=== PATIENT | female | born 1940 | race Caucasian/White ===

== ENCOUNTER → 2016-09-03 | Outpatient (CLI) | payer OTHER ==
[~2016-09-03] VITALS: Ht 167.6 cm; Wt 81.6 kg
[~2016-09-03] MED LIST: CRESTOR5 MG PO; CYCLOBENZAPRINE10 MG PO; FIBERCON625 MG PO; FISH OIL 1,001000 M2 PO; HYOSCYAMINE0.125 MG PO; NABUMETONE 500500 M1 PO; OXYBUTYNIN 5 MG5 M2 PO; PRILOSEC40 MG PO; TRIAMCINOLONE A80 G2; TYLENOL PM; TYLENOL PM EX-1 EACH PO; VITAMIN D-32000 UNIT PO
--- NOTE | ~2016-09-03 | HPC ---
[facility] [place] [address] PAIN MANAGEMENT CONSULTATION Name: REAL GUTIÉRREZ Room #: REG [facility] Dale#: [id number] Admission: 09/03/16 Attend Phys: Jorden Matthews DO Discharge: Date of : 42 Report #: [id number] THIS REPORT FOR: //name// CC: Jorden Lee MD DATE OF SERVICE: 09/03/2016 DATE OF SERVICE: 09/03/2016 CHIEF COMPLAINT: Low back pain, right lower extremity pain and paresthesias. HISTORY OF PRESENT ILLNESS: As you know, patient is a very pleasant 76-year-old female, who has returned today in followup visit requesting next in the series of epidural injections under fluoroscopic guidance. The patient has had increasing low back and right lower extremity pain over the past month for which she returns in followup visit to discuss options for treatment. She has done very well with previous epidural injections, hopeful to see similar improvement with next in the series of epidural injections. She suffers from severe central canal stenosis at L4-L5, that I believe is causing reoccurrence of pain. The distribution is relatively unchanged from our visit of 11/21/2015. She denies new injury new trauma that may have led to increasing pain issues. She wishes to undergo next in the series of epidural injections. ALLERGIES: No known drug allergies. CURRENT MEDICATIONS: Tylenol, omeprazole, calcium carbonate, oxybutynin, hyoscyamine, omega-3 fish oil. SOCIAL HISTORY: The patient denies tobacco, alcohol or IV illicit drug use. 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 She is accompanied by her , who was present in room today. PHYSICAL EXAMINATION: VITAL SIGNS: Blood pressure 140/88, pulse 62, respiratory rate 18 and unlabored. The patient is 100% on room air. Height 5 feet 6 inches tall, weight 180 pounds, BMI calculated 29.1. GENERAL: Well developed, well nourished, well hydrated 76-year-old female appearing stated age, placing current pain score 3-4/10. HEENT: Normocephalic, atraumatic. Pupils equal, round, reactive to light. Extraocular muscles are intact. Sclerae nonicteric without injection. NEUROLOGIC: Cranial nerves 2-12 grossly intact. Speech is fluent. The patient deemed to be a good historian. LUNGS: Clear. No wheezing, rhonchi, rales. CARDIOVASCULAR: Regular. No appreciable gallop or rub. [address] [address] PAIN MANAGEMENT CONSULTATION Name: REAL GUTIÉRREZ Room #: REG [facility].#: [id number] Admission: 09/03/16 Attend Phys: Jorden Matthews DO Discharge: Date of : 42 Report #: [id number] ABDOMEN: Soft, nontender, nondistended. EXTREMITIES: Show no clubbing, no cyanosis, no edema. MUSCULOSKELETAL: Lower extremity strength appears equal and symmetrical, though there is some giveaway strength noted again with hip flexion on the right when compared to left. Seated straight leg raising positive, supine straight leg raising positive right. Fabere's test negative. Modified Gaenslen's positive for axial low back. Gait slightly antalgic favoring right lower extremity over the left. Station normal. ASSESSMENT: 1. Symptomatic lumbar radiculopathy. 2. Progressively worsening spinal stenosis of the lumbar spine. 3. Displacement of lumbar intervertebral disk with radiculopathy. 4. Lumbosacral spondylosis with radiculopathy. 5. Lumbar degeneration. 6. Chronic intractable pain. PLAN: 1. The patient has returned today in followup visit requesting to undergo next in the series of epidural injections under fluoroscopic guidance. The patient has done very well with previous epidural injections noticing upwards of 70% improvement in overall pain with the previous treatment. The patient returns today nearly 8 months after a previous injection, requesting a repeat injection. She states her pain began about a month ago and progressively worsened. She has denied any injury or trauma that may have led to progression or reoccurrence of pain. The patient was advised that third primary restrictions require that authorization be obtained before we can undergo the next in a series of epidural injections. Authorization should be obtained within a 4-7 working day period. We will contact the patient once this authorization has been completed, so that we can have the patient undergo next in the series of epidural injections in hopes of improving pain further building on success of previous intervention. 2. No medication changes were made at today's visit. The patient will continue current medical therapy as previously prescribed. 3. The patient to return to our clinic once authorization has been obtained to undergo epidural injection under fluoroscopic guidance to address lumbar radicular symptoms secondary to spinal stenosis. <ELECTRONICALLY SIGNED> By: Jorden Matthews DO 09/04/16 0743 [id number] Jorden Matthews DO /nt
[2016-09-03 08:50] VITALS: BP 140/88
== END ==
LOC: PAIN 07:05
DX: M47.27 Other spondylosis with radiculopathy, lumbosacral region (principal); M48.06 Spinal stenosis, lumbar region; M51.16 Intervertebral disc disorders with radiculopathy, lumbar region; Z87.891 Personal history of nicotine dependence

== ENCOUNTER → 2016-09-10 | Outpatient (CLI) | payer OTHER ==
[~2016-09-10] VITALS: Ht 167.6 cm; Wt 83.6 kg
--- NOTE | ~2016-09-10 | HPC ---
[facility] [place] [address] PAIN MANAGEMENT CONSULTATION Name: REAL GUTIÉRREZ Room #: REG [facility]..#: [id number] Admission: 09/10/16 Attend Phys: Jorden Mattehws DO Discharge: Date of : 42 Report #: [id number] THIS REPORT FOR: //name// CC: Jorden Lee MD DATE OF SERVICE: 09/10/2016 REFERRING PHYSICIAN: Pamella Lee MD CHIEF COMPLAINT: Low back pain, right lower extremity pain and paresthesias. HISTORY OF PRESENT ILLNESS: As you know, the patient is a very pleasant 76-year-old female who has returned today in followup visit having received precertification to undergo lumbar epidural injection under fluoroscopic guidance. She is placing pain score today around 2-3/10 states her pain is aching, constant sore in sensation, exacerbated with sleep, lifting, and improves with repositioning. She returns today to address her lumbar radicular symptoms with epidural injection, which has received preapproval. ALLERGIES: No known drug allergies. CURRENT MEDICATIONS: Tylenol, omeprazole, calcium carbonate, oxybutynin, hyoscyamine, omega 3 fish oil. SOCIAL HISTORY: The patient denies tobacco, alcohol, IV or illicit drug use. 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 She is accompanied by her . PHYSICAL EXAMINATION: VITAL SIGNS: Blood pressure 131/62, pulse 73, respiratory rate 16, unlabored. The patient is 99% on room air. Height 5 feet 6 inches tall, weight 184.2 pounds, BMI calculated 29.7. GENERAL: Well-developed, well-nourished, well-hydrated 76-year-old female appearing stated age, placing current pain score 2-3/10. HEENT: Normocephalic, atraumatic. Pupils equal, round, reactive to light. EXTREMITIES: Show no clubbing, no cyanosis, no edema. MUSCULOSKELETAL: Gait remains slightly antalgic favoring right lower extremity over left. Modified Gaenslen's is positive for axial low back pain. Straight leg raising is positive in the seated and supine position. ASSESSMENT: 1. Symptomatic lumbar radiculopathy. 2. Progressively worsening spinal stenosis of the lumbar spine. 3. Displacement of the lumbar intervertebral disk with radiculopathy. 4. Lumbosacral spondylosis with radiculopathy. [address] [address] PAIN MANAGEMENT CONSULTATION Name: REAL GUTIÉRREZ Room #: REG JULIANO VasquezEva#: [id number] Admission: 09/10/16 Attend Phys: Jorden Matthews DO Discharge: Date of : 42 Report #: [id number] 5. Lumbar degeneration. 6. Chronic intractable pain. PLAN: 1. The patient has returned today in followup visit having received precertification to undergo the next in a series of epidural injections. The patient was advised risks and benefits of this epidural injection. These risks include but are not necessarily limited to bleeding, bruising, infection, worsening pain, no relief of pain, also risk of temporary or permanent muscle weakness, temporary or permanent nerve damage, possible paralysis and . The patient states understood and wished to proceed. 2. No medication changes were made at today's visit. The patient will continue current medical therapy as previously prescribed. 3. The patient to return to our clinic on an as needed basis for possible repeat epidural injection. PROCEDURE NOTE DESCRIPTION OF PROCEDURE: L5-S1 interlaminar epidural steroid injection under fluoroscopic guidance. After obtaining written consent, the patient was taken back to fluoroscopy suite, placed in prone position with pillow under abdomen to decrease lumbar lordosis. Skin overlying the lumbosacral area was prepped and draped in aseptic fashion. The lumbar epidural spaces were identified by AP fluoroscopy. Skin and subcutaneous tissue overlying the target site of injection was anesthetized with 3 mL of 1% lidocaine. A 20-gauge 3-1/2 inch Tuohy needle advanced under fluoroscopic guidance towards the epidural space using a midline approach. Epidural space was identified using loss of resistance to air technique. After negative aspiration for heme or cerebrospinal fluid, 1 mL of Omnipaque was injected. Lumbar epidurogram was confirmed using both AP and lateral fluoroscopy. After negative aspiration for heme or cerebrospinal fluid, 5 mL of a solution containing 2 mL 40 mg per mL, 80 mg total triamcinolone, 3 mL lidocaine 1% was injected slowly. Needle retracted approximately care home, needle tract flushed with 3 mL of 1% lidocaine. Needle was then removed. Sterile bandage placed over injection site. No new motor deficits present in lower extremity following procedure. The patient tolerated procedure well, carefully escorted to recovery room in stable condition. No apparent complication. After meeting discharge criteria, the patient discharged home. <ELECTRONICALLY SIGNED> By: Jorden Matthews DO 09/23/16 0805 [id number] Jorden Matthews DO /nt
[2016-09-10 10:17] VITALS: BP 131/62
== END | disposition home or self-care (01) ==
LOC: PAIN 07:13
DX: M51.16 Intervertebral disc disorders with radiculopathy, lumbar region (principal); M48.06 Spinal stenosis, lumbar region; M47.27 Other spondylosis with radiculopathy, lumbosacral region; G89.29 Other chronic pain; Z87.891 Personal history of nicotine dependence

== ENCOUNTER → 2017-03-04 | Outpatient (CLI) | payer OTHER ==
[~2017-03-04] VITALS: Ht 167.6 cm; Wt 83.0 kg
--- NOTE | ~2017-03-04 | HPC ---
[facility] [address] [address] PAIN MANAGEMENT CONSULTATION Name: REAL GUTIÉRREZ Room #: REG JULIANO Dale#: [id number] Admission: 03/04/17 Attend Phys: Jorden Matthews DO Discharge: Date of : 42 Report #: [id number] THIS REPORT FOR: //name// CC: Jorden Lee MD DATE OF SERVICE: 03/04/2017 DATE OF SERVICE: 03/04/2017. REFERRING PHYSICIAN: Pamella Lee M.D. CHIEF COMPLAINT: Low back pain, right lower extremity pain and paresthesias. HISTORY OF PRESENT ILLNESS: As you know, the patient is a very pleasant 76-year-old female who returns today in followup visit with ongoing low back pain, lower extremity pain with paresthesias. She is now experiencing both right and left lower extremity symptoms. She returns today requesting epidural injection under fluoroscopic guidance. She reports 75% improvement in overall pain lasting for 3-1/2 months with the previous injection. She returns today requesting next in a series of epidural injections in hopes of improving pain further. ALLERGIES: No known drug allergies. CURRENT MEDICATIONS: Tylenol, omeprazole, calcium carbonate, oxybutynin, omega 3 fish oil, hyoscyamine. SOCIAL HISTORY: The patient denies tobacco, alcohol, IV or illicit drug use. She is accompanied by her who is present in room today. IMAGING: No new imaging available. PHYSICAL EXAMINATION: VITAL SIGNS: Blood pressure 155/74, pulse 68, respiratory rate 14, unlabored. The patient is 98% on room air, height 5 feet 6 inches tall, weight 183 pounds, BMI calculated 29.6. GENERAL: Well developed, well nourished, well hydrated 76-year-old female appearing her stated age. She is placing current pain score at approximately 4-5/10. HEENT: Normocephalic, atraumatic. Pupils equal, round, reactive to light. Extraocular muscles are intact. Dentition is normal. EXTREMITIES: Show no clubbing, no cyanosis, no edema. MUSCULOSKELETAL: Seated straight leg raising is positive on the right, supine straight leg raising positive right. Bubba [place] [address] PAIN MANAGEMENT CONSULTATION Name: REAL GUTIÉRREZ Room #: REG JULIANO Eva.#: [id number] Admission: 03/04/17 Attend Phys: Jorden Matthews DO Discharge: Date of : 42 Report #: [id number] positive for axial low back pain. Ankle clonus negative. Babinski is negative. ASSESSMENT: 1. Symptomatic lumbar radiculopathy. 2. Progressively worsening spinal stenosis of the lumbar spine. 3. Displacement of lumbar intervertebral disk with radiculopathy. 4. Lumbosacral spondylosis with radiculopathy. 5. Lumbar degeneration. 6. Chronic intractable pain. PLAN: 1. The patient returns today in followup visit having noted 75% improvement in overall symptoms with previous epidural injection lasting for nearly 3-1/2 months. Unfortunately, the patient has had a slow and progressive return of symptoms. She denies injury or trauma that may have led to progression of pain. She returns today requesting next in a series of epidural injections to build on success of previous intervention. She has been advised risks and benefits of the procedure, states she understood and wished to proceed. 2. No medication changes were made at today's visit. The patient will continue current medical therapy as previously prescribed. 3. We will see the patient back in followup visit on an as needed basis for possible next in the series of epidural injections. PROCEDURE NOTE DESCRIPTION OF PROCEDURE: L5-S1 interlaminar epidural steroid injection under fluoroscopic guidance using a right paramedian approach. PROCEDURE IN DETAIL: After obtaining written consent, the patient was taken back to fluoroscopy suite, placed in prone position with pillow under abdomen to decrease lumbar lordosis. Skin overlying lumbosacral area prepped and draped in aseptic fashion. Lumbar intervertebral spaces were identified by AP fluoroscopy. Skin and subcutaneous tissue overlying target site of injection was anesthetized with 3 mL of 1% lidocaine. A 20-gauge 3-1/2 inch Tuohy needle advanced under fluoroscopic guidance utilizing a right paramedian approach at the L5-S1 interspace. Epidural space was identified using loss of resistance to air technique. After negative aspiration for heme or cerebrospinal fluid, 1 mL of Omnipaque was injected. A lumbar epidurogram was confirmed using both AP and lateral fluoroscopy. After negative aspiration for heme or cerebrospinal fluid, 5 mL of a solution containing 2 mL 40 mg per mL, 80 mg total triamcinolone, 3 mL lidocaine 1% injected slowly. Needle retracted assisted, needle tract flushed 3 mL 1% lidocaine. Needle then removed. Sterile bandage placed over injection site. No new motor deficits present in lower extremity following the procedure. [facility] [address] [place] [address] PAIN MANAGEMENT CONSULTATION Name: REAL GUTIÉRREZ Room #: REG JULIANO AlissonEvaReji#: [id number] Admission: 03/04/17 Attend Phys: Jorden Matthews DO Discharge: Date of : 42 Report #: [id number] The patient tolerated procedure well, carefully escorted to the recovery in stable condition. No apparent complication. After meeting discharge criteria, the patient discharged home. By: [id number] Jorden Matthews DO /nt
[2017-03-04 13:11] VITALS: BP 155/74
== END | disposition home or self-care (01) ==
LOC: PAIN 07:16
DX: M51.16 Intervertebral disc disorders with radiculopathy, lumbar region (principal); M48.06 Spinal stenosis, lumbar region; M47.27 Other spondylosis with radiculopathy, lumbosacral region; G89.29 Other chronic pain; Z98.890 Other specified postprocedural states; Z79.899 Other long term (current) drug therapy; Z88.2 Allergy status to sulfonamides; Z87.891 Personal history of nicotine dependence

== ENCOUNTER → 2017-08-27 | Outpatient (CLI) | payer OTHER ==
[~2017-08-27] VITALS: Ht 167.6 cm; Wt 80.8 kg
[~2017-08-27] MED LIST changes: +BIOTIN2500 MCG PO
--- NOTE | ~2017-08-27 | HPC ---
[facility] [address] [place] [address] PAIN MANAGEMENT CONSULTATION Name: REAL GUTIÉRREZ Room #: REG JULIANO Pedro.#: [id number] Admission: 08/27/17 Attend Phys: Jorden Matthews DO Discharge: Date of : 42 Report #: [id number] THIS REPORT FOR: //name// CC: Jorden Lee MD DATE OF SERVICE: 08/27/2017 CHIEF COMPLAINT: Low back pain, right lower extremity pain with paresthesias. HISTORY OF PRESENT ILLNESS: As you know, the patient is a very pleasant 77-year-old female who returns today in followup visit reporting pain score of around 4/10, during the evening hours it can rise to about 8/10. She describes the pain as sharp, aching, numbness, tingling; exacerbated with sitting, bending, changing positions, standing and lying down; improves with rest, relaxation and previous epidural injections. The last epidural injection provided 80% improvement in overall pain lasting for nearly 3 months. She underwent an epidural injection in February and actually had pain relief all the way into July, but did have slow and progressive return of symptoms without inciting injury or trauma. She returns today in followup visit requesting next in a series of epidural injections. ALLERGIES: No known drug allergies. CURRENT MEDICATIONS: Tylenol, omeprazole, calcium carbonate, oxybutynin, omega 3 fish oil, hyoscyamine. SOCIAL HISTORY: The patient denies tobacco, alcohol or IV illicit drug use. She is accompanied by her who is present in room today. IMAGING: No new imaging available. PHYSICAL EXAMINATION: VITAL SIGNS: Blood pressure 139/62, pulse 64, respiratory rate 16 and unlabored. The patient is 97% on room air. Height 5 feet 6 inches tall, weight 178.2 pounds, BMI calculated 28.8. GENERAL: Well-developed, well-nourished, well-hydrated 77-year-old female appearing her stated age, placing current pain score at around 5/10. HEENT: Normocephalic, atraumatic. Pupils equal, round, reactive to light. EXTREMITIES: Show no clubbing, no cyanosis, no edema. MUSCULOSKELETAL: Seated straight leg raising is positive on the right. Supine straight leg raising positive right. Gait antalgic favoring right lower extremity over left. Ankle clonus negative. Babinski is negative, intact to light touch from L1 through S2 dermatomes. [address] [address] PAIN MANAGEMENT CONSULTATION Name: REAL GUTIÉRREZ Room #: REG JULIANO Dale#: [id number] Admission: 08/27/17 Attend Phys: Jorden Matthews DO Discharge: Date of : 42 Report #: [id number] ASSESSMENT: 1. Symptomatic lumbar radiculopathy. 2. Progressively worsening spinal stenosis of lumbar spine. 3. Displacement of lumbar intervertebral disk with radiculopathy. 4. Lumbosacral spondylosis with radiculopathy. 5. Lumbar degeneration. 6. Chronic intractable pain. PLAN: 1. The patient returns today in followup visit requesting to undergo next in the series of epidural injections. The patient has had excellent benefit with previous epidural injection providing upwards of 80% improvement in overall pain lasting for months. She has only had a slow and progressive return of symptoms over the past month to month and a half, meaning that she received 3 months or greater improvement in symptoms with the previous epidural injection. We have advised the patient third republican payer restrictions require that authorization be obtained. We will begin the authorization process immediately. Once we have received this authorization, we will have the patient return in followup visit to undergo epidural injection under fluoroscopic guidance. 2. No medication changes were made at today's visit. The patient will continue current medical therapy as previously prescribed. 3. We will see the patient back in followup visit once we have received precertification for the patient to undergo epidural injection to address the right lumbar radicular symptoms she has been experiencing of late. <ELECTRONICALLY SIGNED> By: Jorden Matthews DO 09/09/17 0906 [id number] Jorden Matthews DO /nt
[2017-08-27 09:46] VITALS: BP 139/62
== END ==
LOC: PAIN 06:53
DX: M48.061 Spinal stenosis, lumbar region without neurogenic claudication (principal); M51.26 Other intervertebral disc displacement, lumbar region; M47.27 Other spondylosis with radiculopathy, lumbosacral region; G89.29 Other chronic pain

== ENCOUNTER → 2017-09-03 | Outpatient (CLI) | payer OTHER ==
[~2017-09-03] VITALS: Ht 167.6 cm; Wt 80.7 kg
--- NOTE | ~2017-09-03 | HPC ---
[facility] [place] [address] PAIN MANAGEMENT CONSULTATION Name: REAL GUTIÉRREZ [facility] #: [facility] [id number] Admission: 09/03/17 Attend Phys: Jorden Matthews DO Discharge: Date of : 42 Report #: [id number] THIS REPORT FOR: //name// CC: Jorden Lee MD DATE OF SERVICE: 09/03/2017 CHIEF COMPLAINT: Low back pain, right lower extremity pain and paresthesias. HISTORY OF PRESENT ILLNESS: As you know, the patient is a very pleasant 77-year-old female who returns today in followup visit having received precertification from her third republic[employer] payer to undergo epidural injection under fluoroscopic guidance to address lumbar radicular symptoms. The patient is placing her pain score around 4/10. States that sleeping on her right side, sitting, changing position, bending and standing exacerbate symptoms; elevating her right leg, rest and previous epidural injections have improved symptoms. She returns today in followup visit to undergo the preapproved lumbar epidural injection. ALLERGIES: No known drug allergies. CURRENT MEDICATIONS: Tylenol, omeprazole, calcium carbonate, oxybutynin, omega-3 fish oil, hyoscyamine. SOCIAL HISTORY: The patient denies tobacco, alcohol or IV or illicit drug use. She is accompanied by her who is present in room today. IMAGING: No new imaging available. PHYSICAL EXAMINATION: VITAL SIGNS: Blood pressure 137/65, pulse 74, respiratory rate 16, unlabored. The patient is 100% on room air. Height 5 feet 6 inches tall, weight 177.8 pounds, BMI calculated 28.7. GENERAL: Well-developed, well-nourished, well-hydrated 77-year-old female appearing her stated age. Placing current pain score at 4-5/10. HEENT: Normocephalic, atraumatic. Pupils equal, round, reactive to light. Extraocular muscles are intact. Speech is fluent. EXTREMITIES: Show no clubbing, no cyanosis, no edema. MUSCULOSKELETAL: Seated straight leg raising positive on the right. Supine straight leg raising positive on right. Gait is antalgic favoring right lower extremity over left. Stance is slightly forward flexed lumbar spine. Muscle bulk and tone equal and symmetrical in lower extremities. ASSESSMENT: [address] [address] PAIN MANAGEMENT CONSULTATION Name: REAL GUTIÉRREZ Room #: REG JULIANO Dale#: [id number] Admission: 09/03/17 Attend Phys: Jorden Matthews DO Discharge: Date of : 42 Report #: [id number] 1. Symptomatic lumbar radiculopathy. 2. Progressively worsening spinal stenosis of lumbar spine. 3. Displacement of lumbar intervertebral disk with radiculopathy. 4. Lumbosacral spondylosis with radiculopathy. 5. Lumbar degeneration. 6. Chronic intractable pain. PLAN: 1. The patient returns today in followup visit to undergo epidural injection under fluoroscopic guidance. The patient has received precertification to undergo the procedure. We have advised the patient of the risks and the benefits of the procedure itself. These risks include, but not necessarily limited to bleeding, bruising, infection, worsening pain, no relief of pain, also risk of temporary or permanent muscle weakness, temporary or permanent nerve damage, possible paralysis and . The patient states she understood and wished to proceed. 2. No medication changes were made at today's visit. The patient will continue current medical therapy as previously prescribed. 3. We will see the patient back in followup visit on an as-needed basis for possible next in the series of epidural injections and discuss other treatment options. DESCRIPTION OF PROCEDURE: L5-S1 interlaminar epidural steroid injection under fluoroscopic guidance. After obtaining written consent, the patient was taken back to fluoroscopy suite, placed in prone position with pillow under abdomen to decrease lumbar lordosis. Skin overlying the lumbosacral area prepped and draped in aseptic fashion. Lumbar intervertebral space was identified by AP fluoroscopy. Skin and subcutaneous tissue overlying the target site of injection was anesthetized with 3 mL of 1% lidocaine. A 20-gauge 3-1/2 inch Tuohy needle advanced under fluoroscopic guidance towards the epidural space using a right paramedian approach. Epidural space identified using loss of resistance to air technique. After negative aspiration for heme or cerebrospinal fluid, 1 mL of Omnipaque was injected. A lumbar epidurogram was confirmed using both AP and lateral fluoroscopy. After negative aspiration for heme or cerebrospinal fluid, 5 mL of a solution containing 2 mL 40 mg per mL, 80 mg total triamcinolone, 3 mL lidocaine 1% injected slowly. Needle retracted group home, flushed with 1 mL of 1% lidocaine and removed. Sterile bandage placed over injection site. No new motor deficits present in the lower extremity following the procedure. The patient tolerated procedure well, carefully escorted to recovery room in [facility] [address] [place] [address] PAIN MANAGEMENT CONSULTATION Name: REAL GUTIÉRREZ Room #: REG JULIANO Dale#: [id number] Admission: 09/03/17 Attend Phys: Jorden Matthews DO Discharge: Date of : 42 Report #: [id number] stable condition. No apparent complications. After meeting discharge criteria, the patient discharged home. <ELECTRONICALLY SIGNED> By: Jorden Matthews DO 09/09/17 [id number] Jorden Matthews DO /nt
[2017-09-03 09:44] VITALS: BP 137/65
== END | disposition home or self-care (01) ==
LOC: PAIN 07:05
DX: M51.16 Intervertebral disc disorders with radiculopathy, lumbar region (principal); G89.29 Other chronic pain; M48.061 Spinal stenosis, lumbar region without neurogenic claudication; M47.27 Other spondylosis with radiculopathy, lumbosacral region; Z79.899 Other long term (current) drug therapy; Z98.890 Other specified postprocedural states; Z87.891 Personal history of nicotine dependence; Z88.2 Allergy status to sulfonamides

== ENCOUNTER → 2018-06-30 | Outpatient (CLI) | payer OTHER ==
[~2018-06-30] VITALS: Ht 152.4 cm; Wt 81.6 kg
[~2018-06-30] MED LIST changes: +FLEXERIL PO
--- NOTE | ~2018-06-30 | HPC ---
[facility] [address] [address] PAIN MANAGEMENT CONSULTATION Name: REAL GUTIÉRREZ Room #: REG [facility] M.[place].#: [id number] Admission: 06/30/18 Attend Phys: Jorden Matthews DO Discharge: Date of : 42 Report #: [id number] THIS REPORT FOR: //name// CC: Jorden WILSON MD DATE OF SERVICE: 06/30/2018 CHIEF COMPLAINT: Low back pain, right lower extremity pain with paresthesias, intermittent right hip pain. 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 She has undergone epidural injections with reduction in the efficacy over time. She was evaluated recently by Orthopedics who has referred the patient back to trial a right intraarticular hip injection. Apparently, the orthopedic surgeon does not provide these type of injections typically and she was referred back to trial this injection. She indicates today pain begins in the low back, buttock area. It is bilateral in nature, radiates down the right leg all the way to the foot and involves numbness and tingling. She does note minor worsening of symptoms consistent with standing and walking. She has been referred back to our clinic per the request of Dr. Wilson to try a right intraarticular hip injection. If this is ineffective, plan was to refer the patient to neurosurgery. She indicates today pain level of around 3/10. States her pain is aching, shooting, numbness, tingling and tenderness, exacerbated with lying down and sitting, improves with massage, heat, cold compresses. ALLERGIES: No known drug allergies. CURRENT MEDICATIONS: Tylenol, omeprazole, calcium carbonate, oxybutynin, omega-3 fish oil, hyoscyamine. SOCIAL HISTORY: The patient denies tobacco, alcohol, IV or illicit drug use. She is retired. She is accompanied by her who is present in room today. IMAGING: No new imaging is available. PQRS, the patient has known osteoarthritis of the bilateral hips, bilateral knees and low back. No rheumatoid arthritis. She is placing pain intensity today at approximately 3/10. She is not a fall risk, has not had a fall in last 3 months. She is not on blood thinners. She is not treated for hypertension. She is not on any opioid. She has a low opioid abuse potential. Her functional pain impact score indicated at 34/70, moderate interference. [address] [address] PAIN MANAGEMENT CONSULTATION Name: REAL GUTIÉRREZ [facility] #: [facility] [id number] Admission: 06/30/18 Attend Phys: Jorden Matthews DO Discharge: Date of : 42 Report #: [id number] PHYSICAL EXAMINATION: VITAL SIGNS: Blood pressure 164/75, pulse 78, respiratory rate 18 and unlabored. The patient is 94% on room air. Height 5 feet 6 inches tall, weight 180 pounds, BMI calculated 35.2. GENERAL: Well-developed, well-nourished, well-hydrated exogenously obese 78-year-old female, appearing stated age, placing current pain score at 3/10. HEENT: Normocephalic, atraumatic. Pupils equal, round, reactive to light. Speech fluent. EXTREMITIES: Show no clubbing, no cyanosis, no edema. MUSCULOSKELETAL: The patient's gait remains mildly antalgic on the left. There is deep palpation tenderness over the bilateral buttock area. No SI joint dysfunction. Seated straight leg raising negative. Supine straight leg raising positive on the right. Bubba's test negative. Modified Gaenslen's positive for axial low back pain. ASSESSMENT: 1. Symptomatic lumbar radiculopathy. 2. Severe spinal stenosis of lumbar spine. 3. Displacement of lumbar intervertebral disk with radiculopathy. 4. Lumbosacral spondylosis with radiculopathy. 5. Lumbar degeneration. 6. Right hip pain. 7. Chronic intractable pain. PLAN: 1. The patient has been referred back to our clinic by her orthopedic surgeon, Dr. Wilson to undergo right intraarticular hip injection. Apparently, imaging has been obtained and there is some concern that part of her symptoms may be related to her right hip. She does have some noted discomfort with movement of the right hip, though this would not be correlating with numbness and tingling the patient is reporting in the low back radiating down the leg. We have agreed to have the patient undergo the requested right hip injection so that we can determine the potential for how much that hip joint may be contributing to the patient's overall pain. There is question whether or not the patient's right hip is the source of symptoms or the severe spinal stenosis noted at the L4-L5 level we have been treating. She has been consented to undergo the right intra-articular hip injection per the request of the orthopedic surgeon today. She has been advised risks and benefits, states understood and wished to proceed. 2. No medication changes made at today's visit. The patient will continue current medical therapy as previously prescribed. 3. We will see the patient back in followup visit on an as needed basis. She is to contact her orthopedic surgeon in the next couple of days to advise of the efficacy of today's right intraarticular hip injection. [facility] [address] [address] PAIN MANAGEMENT CONSULTATION Name: EDGARPAXTONDANYEL CARYANDRÉS DUMONT Room #: [facility] [id number] Admission: 06/30/18 Attend Phys: Jorden Matthews DO Discharge: Date of : 42 Report #: [id number] PROCEDURE NOTE PROCEDURE: Right intra-articular hip injection under fluoroscopic guidance. DESCRIPTION OF PROCEDURE: After obtaining written consent, the patient was taken back to fluoroscopy suite, placed in a supine position. The image intensifier was then brought into position over the right hip and AP imaging was obtained. The area was marked with sterile marker. I then prepped and draped with chlorhexidine in a sterile fashion. A 27-gauge 1-1/4 inch needle was used to anesthetize skin and subcutaneous tissue with 3 mL of 1% lidocaine. A 22-gauge 3-1/2 inch spinal needle was advanced under fluoroscopic guidance towards the right femoral head. Needle was advanced until reaching the osseous structure. It was then retracted approximately 1 mm and aspiration noted to be negative for heme. After negative aspiration for heme, 1 mL of Omnipaque was injected demonstrating an excellent right hip arthrogram. After negative aspiration for heme, 5 mL of a solution containing 1 mL 40 mg per mL 40 mg total triamcinolone and 4 mL of bupivacaine 0.5% injected slowly. Needle retracted group home, flushed with 1 mL of 1% lidocaine and removed. Sterile bandage placed over injection site. No new motor deficits present in lower extremity following the procedure. The patient tolerated procedure well, carefully escorted to recovery room in stable condition. No apparent complications. VAS before procedure rated at 3/10 and VAS after procedure rated at 3/10. After meeting our discharge criteria, the patient discharged home. By: [id number] Jorden Matthews DO /nt
[2018-06-30 09:50] VITALS: BP 164/75
== END | disposition home or self-care (01) ==
LOC: PAIN 06:19
DX: M25.551 Pain in right hip (principal); M51.16 Intervertebral disc disorders with radiculopathy, lumbar region; M48.061 Spinal stenosis, lumbar region without neurogenic claudication; M47.27 Other spondylosis with radiculopathy, lumbosacral region; G89.29 Other chronic pain; M19.90 Unspecified osteoarthritis, unspecified site; Z98.890 Other specified postprocedural states; Z87.891 Personal history of nicotine dependence; Z88.2 Allergy status to sulfonamides; Z79.899 Other long term (current) drug therapy

== ENCOUNTER → 2020-09-20 | Outpatient (CLI) | payer OTHER ==
[~2020-09-20] VITALS: Ht 167.6 cm; Wt 82.8 kg
[~2020-09-20] MED LIST changes: +GABAPENTIN 100100 MG PO; +MELOXICAM7.5 MG PO; +NEURONTIN 300M300 M2 PO; +TRAMADOL 50 MG50 MG PO; +VITAMIN D310 MC2 PO
--- NOTE | ~2020-09-20 | HPC ---
[facility] [place] [address] PAIN MANAGEMENT CONSULTATION Name: REAL GUTIÉRREZ Room #: REG JULIANO Dale#: [id number] Admission: 09/20/20 Attend Phys: Jorden Matthews DO Discharge: Date of : 42 Report #: [id number] THIS REPORT FOR: cc: Pamella Lee MD, Paula V. MD Johnson, James E. DO ~ DATE OF SERVICE: 09/20/2020 CHIEF COMPLAINT: Bilateral anterior thigh numbness and tingling. HISTORY OF PRESENT ILLNESS: As you know, the patient is a very pleasant 80-year-old female, who was treated by [facility], [place], operated by [facility] for years for longstanding lumbar radiculopathy. She has now undergone L4-L5 fusion with Dr. May with resolution of symptoms lasting for a couple of months and then she began to experience anterior thigh numbness and tingling, mainly on the right side. It was determined by imaging that her fusion appeared to be normal. She was sent to see an orthopedic hip surgeon who advised the patient that her symptoms are not related to the hip, though she was referred to our clinic to undergo a right intraarticular hip injection. The patient reports today her pain is constant and continuous. She describes the pain as numbness, tingling and burning. It is located on the anterior thigh in the L3-L4 distribution consistent with changes at the L3-L4 level. She is experiencing no hip pain today. Weightbearing does not change her symptomology. She has no resolution of pain with lying down or sitting, which is inconsistent with the left hip pathology. She was referred to our clinic to discuss treatment options. She is placing current pain score 2/10. She denies injury or trauma. Majority of symptoms she feels on the anterior thigh on the right, but intermittently on the left. She describes all pain as numbness, tingling, burning and electrical in sensation. ALLERGIES: No known drug allergies. CURRENT MEDICATIONS: Nabumetone 500 mg twice a day, rosuvastatin 5 mg once a day, oxybutynin 5 mg once a day, acetaminophen p.r.n., biotin 2000 mcg per day, cholecalciferol ____ per day, tramadol 50 mg b.i.d. p.r.n. pain. SOCIAL HISTORY: The patient continues to deny tobacco, alcohol, IV or illicit drug use. She is accompanied by her present in room today. IMAGING: MRI lumbar spine obtained 05/04/2020 shows L1-L2 with bilateral facet arthropathy. No significant central canal or neural foraminal stenosis. L2-L3 shows bilateral facet arthropathy and ligamentum flavum hypertrophy leading to mild neural foraminal narrowing, [id number] spinal canal narrowing. L3-L4 shows extensive facet arthropathy, ligamentum flavum hypertrophy, moderate spinal canal stenosis, mild left neural foraminal narrowing. L4-L5 appears open and patent in the central canal and neural foramen. L5-S1 shows bilateral facet [address] [address] PAIN MANAGEMENT CONSULTATION Name: REAL GUTIÉRREZ Room #: REG JULIANO Hunter#: [id number] Admission: 09/20/20 Attend Phys: Jorden Matthews DO Discharge: Date of : 42 Report #: [id number] arthropathy, mild tripole narrowing of the central canal, minimal neural foraminal narrowing. PQRS: The patient has known arthritic changes of the lumbar spine, cervical spine, bilateral hips. No rheumatoid arthritis. Placing current pain score 2/10. She is not a fall risk, has not had a fall in last 3 months. She is not on blood thinners and not treated for hypertension. She is on tramadol, has a low opioid addiction potential. Pain impact is 30/70, moderate interference of daily activities secondary to pain. PHYSICAL EXAMINATION: VITAL SIGNS: Blood pressure 153/60, pulse is 75, respiratory rate 16 and unlabored. The patient 98% on room air. Height 5 feet 6 inches tall, weight 182.6 pounds, BMI calculated 29.5. GENERAL: Well-developed, well-nourished, well-hydrated 80-year-old female appearing her stated age, in no acute distress, awake, alert and oriented x 3. Current pain score is 2/10. HEENT: Normocephalic, atraumatic. Pupils equal, round and reactive. Extraocular muscles are intact. NEUROLOGIC: Speech fluent. The patient deemed a good historian. She is wearing a mask in compliance with COVID-19 regulations. EXTREMITIES: Show no clubbing, no cyanosis, no edema. MUSCULOSKELETAL: Lower extremity strength appears symmetrical 5/5, intact to light touch from L1 through S2 dermatomes. Seated straight leg raising negative. Supine straight leg raising is positive on the right. Bubba's test is negative bilaterally. No intrinsic hip pathology noted with any maneuvers of the hips. Gait is antalgic favoring right lower extremity over left. Ankle clonus negative. Babinski is negative. Deep tendon reflexes are symmetrical, but diminished. ASSESSMENT: 1. Symptomatic lumbar radiculopathy. 2. Central canal stenosis of lumbar spine. 3. Facet arthropathy of the lumbar spine. PLAN: 1. Based on today's physical exam and history the patient has provided, the description the patient uses in regards to pain as well as the distribution of symptoms. She would appear to be suffering from lumbar radiculopathy secondary to central canal stenosis. We have reviewed the patient's MRI once it was received at our clinic and it does show moderate central canal stenosis at L3-L4 consistent with the patient's current distribution of symptoms. I was unable to elicit any hip pathology and thus I would not recommend intraarticular hip injection as hip pain does not cause numbness and tingling in a dermatomal pattern, specifically on the L3 and L4 dermatome on the right as well as intermittently on the left. We have discussed with the patient the treatment [address] [address] PAIN MANAGEMENT CONSULTATION Name: REAL GUTIÉRREZ Room #: REG CL Dale#: [id number] Admission: 09/20/20 Attend Phys: Jorden Matthews DO Discharge: Date of : 42 Report #: [id number] options we have for lumbar radiculopathy secondary to spinal stenosis. Following was discussed with the patient today. We discussed physical therapy, stretching exercises and core strengthening as a treatment course. We discussed medication management utilizing neuropathic pain medication such as amitriptyline, nortriptyline, Cymbalta, Lyrica or gabapentin. The patient indicates that she was trialled on gabapentin, but we have only given 100 mg 3 times a day, which is essentially a first day dosing of this therapy. She will likely have to be somewhere between 600 mg 3 times a day to 900 mg 3 times a day to reach any efficacious levels. We also discussed with the patient epidural injections under fluoroscopic guidance to address spinal canal stenosis and lumbar radiculopathy and finally, we discussed surgical decompression at the L3-L4 level. After reviewing risks and benefits of all proposed treatment options, the patient chose to make adjustments in medication management. We will begin the process of authorization for an epidural injection as well. 2. The patient will begin with gabapentin 300 mg p.o. at bedtime. She will continue this for 1 night, then increase to 600 mg p.o. at bedtime and continue for 3 nights. If no improvement in symptoms, no side effects, then increase to 900 mg p.o. at bedtime for 3 nights. Again, if no side effects such as sleepiness, disorientation, confusion, mental slowing and no improvement in symptoms, then begin escalating on morning dose every 3 days until reaching 900 mg b.i.d. The patient was given a prescription of #180 gabapentin 300 mg tablets to begin the titration immediately. She was advised once reaching efficacious level stay at that dose, do not increase further. If no improvement in symptoms, no side effects, continue the titration. We will adjust further based on her response. 3. We will begin the authorization process for the patient to undergo lumbar epidural injection. Authorization could take anywhere from 4-7 working days. Once this authorization is completed, we will have the patient return to undergo epidural injection assuming no improvement with medications. 4. We wish to thank the referring team for the opportunity to see the patient in consultation. We are hopeful the information provided here in will help further direct her care for her lumbar radiculopathy secondary to the findings at the L3-L4 level. Again, we wish to thank you for the opportunity to see the patient in consultation. By: [id number] Jorden Matthews DO /nt
[2020-09-20 12:33] VITALS: BP 153/60
--- NOTE | 2020-09-20 12:46 | NUR ---
Pain Clinic Assessment: 1. History of Osteoarthritis: hip and neck History of Rheumatoid Arthritis: Not Applicable 2. Height: 5 ft. 6 in. 167.6 cm. Weight: 182.6 lb. oz. 82.827 kg. Patient's BMI: 29.5 3. Vital Signs: BP: 153/60 Pulse: 75 Resp: 16 Temp: 02 Sat: 98 ECG Mon: 4. Pain Intensity: 2 5. Fall Risk: Dizziness: N Needs help standing or walking: N Fallen in the last 3 months: N Fall risk comments: 6. Patient on Blood Thinner: None 7. History of Hypertension: N 8. Opioid Therapy greater than 6 weeks: N Opiate Contract Signed: 9. Risk Assessment Tool Provided: LOW RISK 08/20 10. Functional Assessment Tool: 11. Recreational Drug Use: Never Drug Type: Tobacco Use: Former Smoker Tobacco Type: Amount or Packs/day: How Many Years: Alcohol Use: Yes Frequency: Weekly Quant: 1-2 DRINKS
== END ==
LOC: PAIN 06:50
PROVIDERS: ATTEND Anesthesiology Pain Medicine
DX: M79.652 Pain in left thigh (principal); R20.2 Paresthesia of skin; M47.26 Other spondylosis with radiculopathy, lumbar region; M48.061 Spinal stenosis, lumbar region without neurogenic claudication; Z88.8 Allergy status to other drugs, medicaments and biological substances; Z79.899 Other long term (current) drug therapy

== ENCOUNTER → 2021-06-05 | Outpatient (CLI) | payer OTHER ==
[~2021-06-05] VITALS: Ht 167.6 cm; Wt 82.6 kg
[~2021-06-05] MED LIST changes: +MIRALAX119 GM PO; +PEPCID20 MG PO
[2021-06-05 13:30] VITALS: BP 140/72
--- NOTE | 2021-06-05 13:32 | NUR ---
Pain Clinic Assessment: 1. History of Osteoarthritis: hip and neck History of Rheumatoid Arthritis: Not Applicable 2. Height: 5 ft. 6 in. 167.6 cm. Weight: 182.0 lb. oz. 82.555 kg. Patient's BMI: 29.4 3. Vital Signs: BP: 140/72 Pulse: 95 Resp: 16 Temp: 02 Sat: 97 ECG Mon: 4. Pain Intensity: 2 5. Fall Risk: Dizziness: N Needs help standing or walking: N Fallen in the last 3 months: N Fall risk comments: 6. Patient on Blood Thinner: None 7. History of Hypertension: N 8. Opioid Therapy greater than 6 weeks: N Opiate Contract Signed: 9. Risk Assessment Tool Provided: LOW RISK 08/20 10. Functional Assessment Tool: 11. Recreational Drug Use: Never Drug Type: Tobacco Use: Former Smoker Tobacco Type: Amount or Packs/day: How Many Years: Alcohol Use: Yes Frequency: Quant:
--- NOTE | 2021-06-06 10:41 | HPC ---
[facility] [address] [place] [address] PAIN MANAGEMENT CONSULTATION Name: REAL GUTIÉRREZ Room #: REG JULIANO Dale#: [id number] Admission: 06/05/21 Attend Phys: Dayanna Barlow Discharge: Date of : 44 Report #: [id number] THIS REPORT FOR: cc: Pamella Lee MD,Dayanna Schwab MD ~ cc: Pamella Lee MD, Jorden Matthews DO DATE OF SERVICE: 06/05/2021 CHIEF COMPLAINT: Bilateral anterior thigh numbness and low back pain. HISTORY OF PRESENT ILLNESS: This is a very pleasant 80-year-old female who returns to the pain clinic today to renew her gabapentin. Today, the patient states her pain, numbness, tingly sensation is a 2/10. She believes the gabapentin taking one middle of the day and two at bedtime affords her much relief and enables her to sleep at night. She reports that taking higher levels as she tried initially did cause some side effects of oversedation. She believes that the current dose does significantly help the tingly sensation and achy sensation that she feels in her legs bilaterally. The patient reports that since we have seen her last in September, she has also had some cervical radiculopathy issues and lumbar radiculopathy issues that she did see her primary care physician for. She does report having physical therapy, which was beneficial as well as a Medrol Dosepak. Her pain is mostly resolved, though at times she does have radicular symptoms in her legs, greater on the right than the left most recently. ALLERGIES: SULFA. CURRENT LIST OF MEDICATIONS: MiraLax, Pepcid, gabapentin, vitamin D, biotin, Tylenol, oxybutynin, Crestor and nabumetone. PQRS: 1. She has osteoarthritic issues in her hips, neck and hands. Denies any rheumatoid arthritis. Height is 5 feet 6 inches, weight is 182. BMI is 29. 2. Vital signs: Blood pressure 140/72, pulse is 95, respirations 16, oxygen sat is 97%. 3. Pain score is 2/10. 4. Denies dizziness, does not need help walking or standing, has not fallen in the last 3 months. 5. The patient is not on any blood thinners or medications for hypertension. 6. She does not take any opioids on a regular basis. 7. Risk assessment is low. Functional assessment is 30/70. Recreational drug use, she denies. She is a former smoker and occasionally drinks alcohol. According to the prescription monitoring system, the patient had some tramadol [address] [address] PAIN MANAGEMENT CONSULTATION Name: BROCKREALANDRÉS DUMONT Room #: REG CL Dale#: [id number] Admission: 06/05/21 Attend Phys: Dayanna Barlow Discharge: Date of : 44 Report #: [id number] in 2020, but she is not on a daily opioid medication. PHYSICAL EXAMINATION: GENERAL: This is alert and orientated, well-developed, well-nourished 80-year-old female who appears her stated age, rating her current pain score today at 2/10. HEENT: Normocephalic, atraumatic. Pupils equal, round and reactive to light. Extraocular muscles are intact. She is wearing a mask for COVID precautions. EXTREMITIES: No clubbing, no cyanosis, no edema. MUSCULOSKELETAL: Lower extremity strength is symmetrical at 5/5 with good sensation. Gait is antalgic favoring her right lower extremity over her left. She does have tenderness in the lumbosacral region with radicular symptoms in the right today, though at times radiates into the left leg, tingly sensation located in legs bilaterally, greater on the left than the right. ASSESSMENT: 1. Symptomatic lumbar radiculopathy. 2. Central canal stenosis of lumbar spine. 3. Facet arthropathy of the lumbar spine. PLAN: 1. We discussed treatment options with the patient today. Overall, the patient believes the gabapentin has been beneficial in helping alleviate a significant portion of her neuropathy that she experiences in her lower extremities. We will continue her on the gabapentin, currently taking 3 total tablets a day. At times, the patient is sedated with daytime dose. I did explain that if maybe she can move that to the evening and take 3 tablets at bedtime or she can do without and see how her symptoms are without the medication daytime. We believe the lowest most effective dose and she may be at that at 3 tablets a day. Today, we will continue this, sending 270 gabapentin 300 mg tablets with one refill to her local pharmacy. 2. I did discuss that if she needs this refilled in 6 months, she may gladly return to our clinic or she may get this medication from her primary care physician. 3. The patient reports having some recent lumbar radiculopathy symptoms. Physical therapy as well as the Medrol Dosepak did help. I encouraged her to continue her exercises that she learned in therapy at home to help with mobility. She does suffer from spinal canal stenosis that may require epidurals in the future. I explained that Dr. Jorden Matthews would gladly perform those if she would feel an injection is necessary. 4. The patient will return as needed to our clinic or get refills from her primary care physician. Time spent in patient consultation, reviewing pertinent imaging and reviewing recent studies, clinical notes and physician reports, physical examination and correlation of physical findings and medical documentation to determine possible [facility] [address] [place] [address] PAIN MANAGEMENT CONSULTATION Name: REAL GUTIÉRREZ Room #: REG [facility] Pedro.#: [id number] Admission: 06/05/21 Attend Phys: Dayanna Barlow Discharge: Date of : 44 Report #: [id number] treatment options 13 minutes. Time spent preparing for appointment, reviewing prescription monitoring system, reviewing previous records and proposed treatment options, and reviewing current medicines 5 minutes. Time spent preparing and sending electronic prescriptions, documentation of visit and plan of treatment with collaborating physician, Dr. Jorden Matthews, 5 minutes. Total time spent 22 minutes. <ELECTRONICALLY SIGNED> By: Dayanna Barlow 06/06/21 [id number] [id number] Dayanna Barlow /nt
== END ==
LOC: PAIN 11:00
PROVIDERS: ATTEND Clinical Nurse Specialist Adult Health
DX: M47.26 Other spondylosis with radiculopathy, lumbar region (principal); M48.061 Spinal stenosis, lumbar region without neurogenic claudication; R20.0 Anesthesia of skin; Z88.8 Allergy status to other drugs, medicaments and biological substances